=== PATIENT | female | born 2005 | race Caucasian/White ===

== ENCOUNTER 2023-05-18 09:00 | Emergency (ER) | payer OTHER | END 2023-05-18 11:10 | disposition home or self-care (01) | LOC: CSHERS 09:00 | DX: O99.513 Diseases of the respiratory system complicating pregnancy, third trimester (principal); J02.9 Acute pharyngitis, unspecified; Z3A.36 36 weeks gestation of pregnancy | CPT/HCPCS: 87081; 87430; 99283 ==